=== PATIENT | male | born 1955 | race Caucasian/White ===

== ENCOUNTER → 2019-08-10 08:25 | Outpatient (BNVA) | payer BC, SELFPAY | PROVIDERS: Family Provider Family Medicine; PCP Family Medicine; Visit Provider Family Medicine | DX: I10 Essential (primary) hypertension (principal); E11.9 Type 2 diabetes mellitus without complications; R35.1 Nocturia; L03.211 Cellulitis of face | CPT/HCPCS: 80053; 80061; 82044; 83036; 84153; 85025 ==

== ENCOUNTER → 2019-11-29 10:35 | Outpatient (BNVA) | payer BC, SELFPAY | PROVIDERS: Family Provider Family Medicine; PCP Family Medicine; Visit Provider Family Medicine | DX: I10 Essential (primary) hypertension (principal); E11.9 Type 2 diabetes mellitus without complications; R35.1 Nocturia; Z12.5 Encounter for screening for malignant neoplasm of prostate | CPT/HCPCS: 80053; 80061; 82044; 83036; 85025; G0103 ==

== ENCOUNTER → 2020-07-20 11:22 | Outpatient (BNVA) | payer BC, SELFPAY | PROVIDERS: Family Provider Family Medicine; PCP Family Medicine; Visit Provider Emergency Medicine | DX: Z20.822 Contact with and (suspected) exposure to COVID-19 (principal) | CPT/HCPCS: 87635 ==

== ENCOUNTER 2020-08-20 09:00 | Emergency (ER) | payer BC, SELFPAY ==
[2020-08-20 09:05] VITALS: BP 160/123; PULSE 75; RESP 18; TEMP 36.7; O2SAT 99; BMI 27.6
--- NOTE | 2020-08-20 09:21 | W.ED.ALLEREA ---
HPI - Allergic Reaction General: Chief complaint: Allergic Reaction Stated complaint: Allergic Reaction/Swelling in the Face Time Seen by Provider: 08/20/20 09:03 History of Present Illness: HPI narrative: 65-year-old male who comes in complaint allergic reaction and swelling to his face. He was initially seen at the outpatient clinic and started on Keflex. Did not seem to be improving and was switched to clindamycin and topical mupirocin. He feels like it swelling more he describes a burning sensation across his face presents emergency room concerned he may be having allergic reaction does not have any rash anywhere else on his body is limited to just the face when the initial infection was. He is not had any difficulty breathing. MD complaint: facial swelling Onset (ago): minute(s) Associated symptoms: Reports facial swelling; Deny abdominal pain, difficulty breathing, dysphagia, dizziness, hoarseness, itching, lip swelling, nausea, rash, tongue swelling or vomiting Severity: moderate Treatment prior to arrival: none Previous Allergic Reaction History: none Review of Systems Const: Denies: fever(s), chills, body aches, change in appetite, fatigue or malaise ENMT: Denies: hoarseness Card: Denies: chest pain, edema, dyspnea on exertion or orthopnea Resp: Denies: dyspnea, productive cough or non-productive cough GI: Denies: abdominal pain, nausea, vomiting or dysphagia Neuro: Denies: dizziness All/Imm: Reports: facial swelling; Denies: tongue swelling PFS ED PFSH: Medical History Benign essential hypertension Exposure to COVID-19 virus Type 2 diabetes mellitus, without long-term current use of insulin Surgical History History of rotator cuff surgery History of surgical amputation of finger Family History Other Cancer Social History Smoking and tobacco status: former smoker Alcohol intake: current Alcohol intake frequency: 0-2 Drinks per Day Alcohol type: beer Physical Exam Const: COMMON NORMALS: no acute distress GENERAL APPEARANCE: cooperative and comfortable ORIENTATION/CONSCIOUSNESS: Yes awake, Yes oriented to person, Yes oriented to place and Yes oriented to time HENMT: COMMON NORMALS: normocephalic, atraumatic and hearing grossly normal bilaterally HEAD & SCALP: normocephalic and atraumatic Neck/C-Spine: COMMON NORMALS: no JVD Resp: COMMON NORMALS: normal respiratory effort, No retractions, No use of accessory muscles and clear to auscultation bilaterally AUSCULTATION: clear to auscultation bilaterally Cardio: COMMON NORMALS: no JVD, regular rate, regular rhythm and No murmurs present (Cardio) RATE: regular rate RHYTHM: regular rhythm Neuro: SENSORIUM/ORIENTATION: Yes oriented to person, Yes oriented to place and Yes oriented to time Skin: NARRATIVE SKIN EXAM: Malar rash of the face spreading across the glabella and inferiorly on the cheeks it is inflamed slightly warm to the touch hypertrophy of sebaceous glands involves sebaceous glands of the nose as well. Patient reports burning sensation with discomfort with palpation no identifiable abscess. Course Vital Signs: Vital signs: Vital Signs Temperature 98.1 F 08/20/20 09:05 Pulse Rate 73 08/20/20 09:28 Respiratory Rate 18 08/20/20 09:28 Blood Pressure 162/101 08/20/20 09:28 Pulse Oximetry 98 08/20/20 09:28 MDM - Allergic Reaction MDM Narrative: Medical decision making narrative: Stop clindamycin and mupirocin change to MetroGel and doxycycline. We will get him set up for referral to dermatology. Discharge Plan Discharge Patient Disposition: Home Clinical Impression: Rosacea Condition: Stable Prescriptions: New Metrogel 1 % gel 1 applic topical DAILY 14 Days Qty: 60 RF: 0 doxycycline hyclate 100 mg capsule 100 mg PO BID 14 Days Qty: 28 RF: 0 Discontinued silver sulfadiazine [Silvadene] 1 % cream 1 applic topical DAILY Qty: 50 RF: 0 mupirocin 2 % ointment 1 applic topical TID Qty: 22 RF: 0 clindamycin HCl 300 mg capsule 300 mg PO TID 7 Days Qty: 21 RF: 0 No Action hydrocodone-acetaminophen [Prosperity] 5-325 mg tablet 1 tab PO BID PRN (Reason: pain) 7 Days Qty: 14 RF: 0 losartan 25 mg tablet 25 mg PO DAILY Qty: 90 RF: 1 metformin 500 mg tablet 500 mg PO BID Qty: 180 RF: 1 tramadol 50 mg tablet 50 mg PO BID PRN (Reason: pain) Qty: 14 RF: 0 Discharge Orders: Discharge ED (Routine); Ordered 08/20/20 Ordered By: Edinson Santos Referrals: Jo Bolaños DO [Primary Care Provider] - Discharge Diet: Usual diet Discharge Activity: Increase activity as tolerated Patient Instructions: Opioid Safety Activity Restrictions/Additional Instructions: Avoid sun exposure. Case management will call with a referral to dermatology. Coding Level of Care Code ED Control Technician for Jabari Luna
[2020-08-20 09:28] VITALS: BP 162/101; PULSE 73; RESP 18; O2SAT 98
--- NOTE | 2020-08-20 15:13 | DCPLANNER ---
manager of investigations had message to schedule a follow up appointment with dermatology. manager of investigations called the [facility] [employer] office of Dr. Linton. manager of investigations spoke with Clementina, gave clinic patients information, a follow up appointment was scheduled for Thursday, January 21, 2021 at 12:[address] Linton. manager of investigations called patient, spoke with patients , gave her the appointment information.
== END 2020-08-20 09:29 | disposition home or self-care (01) ==
PROVIDERS: Emergency Provider Family Medicine; PCP Family Medicine
DX: L71.9 Rosacea, unspecified (principal); I10 Essential (primary) hypertension; E11.9 Type 2 diabetes mellitus without complications; Z87.891 Personal history of nicotine dependence; Z79.84 Long term (current) use of oral hypoglycemic drugs
CPT/HCPCS: 99282

== ENCOUNTER → 2021-01-21 12:11 | Outpatient (BNVA) | payer BC, MEDICARE, SELFPAY | PROVIDERS: PCP Family Medicine; Visit Provider Family Medicine | DX: I10 Essential (primary) hypertension (principal); E11.9 Type 2 diabetes mellitus without complications; Z12.5 Encounter for screening for malignant neoplasm of prostate | CPT/HCPCS: 82043 ==

== ENCOUNTER → 2021-01-22 07:10 | Outpatient (BNVA) | payer MEDICARE, SELFPAY | PROVIDERS: PCP Family Medicine; Visit Provider Family Medicine | DX: I10 Essential (primary) hypertension (principal); E11.9 Type 2 diabetes mellitus without complications; Z12.5 Encounter for screening for malignant neoplasm of prostate | CPT/HCPCS: 80053; 80061; 83036; 85025; G0103 ==

== ENCOUNTER → 2022-02-21 13:42 | Outpatient (BNVA) | payer MEDICARE, SELFPAY | PROVIDERS: PCP Family Medicine; Visit Provider Family Medicine | DX: I10 Essential (primary) hypertension (principal); E11.9 Type 2 diabetes mellitus without complications; Z12.5 Encounter for screening for malignant neoplasm of prostate | CPT/HCPCS: 80053; 80061; 82043; 83036; 85025; G0103 ==

== ENCOUNTER → 2022-03-04 08:19 | Outpatient (BNVA) | payer MEDICARE, SELFPAY | PROVIDERS: PCP Family Medicine; Visit Provider Surgery | DX: Z12.11 Encounter for screening for malignant neoplasm of colon (principal) | CPT/HCPCS: 99024; 99203 ==

== ENCOUNTER 2022-06-11 06:26 | Day surgery (SDC) | payer MEDICARE, SELFPAY ==
[2022-06-06 09:13] VITALS: BMI 24.5
[2022-06-11 06:44] VITALS: BP 142/87; PULSE 74; RESP 18; TEMP 36.7; O2SAT 98
[2022-06-11] MEDS: sodium chloride 0.9% 1,000 ML 30 ML IV (06:57)
[2022-06-11 07:00] LABS: Glucose Point of Care 130 mg/dL (70-110)
--- NOTE | 2022-06-11 07:30 | ANES.PREANE2 ---
Pre-Anesthetic Assessment Height/Weight: Height 1.8 m Weight 79.832 kg Temp Pulse Resp BP Pulse Ox O2 Del Method 98.1 F 74 18 142/87 98 06/11/22 06:44 06/11/22 06:44 06/11/22 06:44 06/11/22 06:44 06/11/22 06:44 06/11/22 06:44 Preop Diagnosis: Screening Operation Date: 06/11/22 08:00 Proposed Procedures p Colonoscopy 90392,Z12.11(Not Applicable) - Yair Boland DO Familial anesthetic complications: none Was Beta Yousif taken within 24 hours: N/A Was Clonidine taken within 24 hours: N/A Last intake: Intake Last Liquid Date 06/10/22 Last Liquid Time 23:30 Last Solid Date 06/10/22 Last Solid Time 02:00 Last Intake: 23:30 Social No alcohol (2-3 beer day) and No tobacco Exam alert, oriented x 3, clear to auscultation bilaterally and regular rate & rhythm Airway Submandibular: within normal limits Cervical ROM: within normal limits Mallampati: Class I Dentition: false (upper) Pulmonary None reported CV/HEM Hypertension None reported Hepatic None reported GI Gastroesophageal Reflux Disease (food related treats OTC) Metabolic Diabetes Mellitus [facility] [place] None reported Neuropsych None reported Anesthetic Plan ASA status: 2 Anesthesia: MAC Medications/Allergies Home Medications Medication Instructions Recorded Confirmed Last Taken Type atorvastatin 40 mg tablet 40 mg PO DAILY 30 days #30 tabs 02/21/22 06/06/22 06/09/22 Rx metformin 500 mg tablet 500 mg PO BID 30 days #60 tabs 02/25/22 06/06/22 06/09/22 Rx losartan 50 mg tablet 50 mg PO DAILY 06/06/22 06/06/22 06/09/22 History Allergies Allergy/AdvReac Type Severity Reaction Status Date / Time Penicillins AdvReac Mild unknown Verified 06/06/22 09:09 Current Medications Generic Name Dose Route Start Last Admin Trade Name Freq PRN Reason Stop Dose Admin Sodium Chloride 1,000 mls @ 30 mls/hr 06/11/22 06:45 06/11/22 06:57 Sodium Chloride 0.9% IV 06/12/22 06:44 30 mls/hr .Q24H OCTAVIANO Administration PFSH Anesthesia Medical History Benign essential hypertension Type 2 diabetes mellitus, without long-term current use of insulin Surgical History History of rotator cuff surgery History of surgical amputation of finger Family History Other Cancer Social History Smoking and tobacco status: former smoker Alcohol intake: current Alcohol intake frequency: 0-2 Drinks per Day Alcohol type: beer Data Anesthesia Cardiac Studies: No Data to Display
--- NOTE | 2022-06-11 07:49 | P.HP_ITS ---
Providers/Chief Complaint Primary Care Provider: oJ Bolaños DO Chief Complaint: Z12.11 History of Present Illness Eliceo Wyatt is a 67 year old male here for colonoscopy Medications/Allergies Home Medications Medication Instructions Recorded Confirmed Last Taken Type atorvastatin 40 mg tablet 40 mg PO DAILY 30 days #30 tabs 02/21/22 06/06/22 06/09/22 Rx metformin 500 mg tablet 500 mg PO BID 30 days #60 tabs 02/25/22 06/06/22 06/09/22 Rx losartan 50 mg tablet 50 mg PO DAILY 06/06/22 06/06/22 06/09/22 History Allergies Allergy/AdvReac Type Severity Reaction Status Date / Time Penicillins AdvReac Mild unknown Verified 06/06/22 09:09 PFSH Acute PFSH: Medical History Benign essential hypertension Type 2 diabetes mellitus, without long-term current use of insulin Surgical History History of rotator cuff surgery History of surgical amputation of finger Family History Other Cancer Social History Smoking and tobacco status: former smoker Alcohol intake: current Alcohol intake frequency: 0-2 Drinks per Day Alcohol type: beer Vitals/I&O/Wt Last Vital Signs Temp 98.1 F 06/11/22 06:44 Pulse 74 06/11/22 06:44 Resp 18 06/11/22 06:44 BP 142/87 06/11/22 06:44 Pulse Ox 98 06/11/22 06:44 O2 Del Method 06/11/22 06:44 A&P Assessment and plan (1) Colon cancer screening: Plan Colonoscopy Attestations Medical Necessity Statement*: Home Coding Level of Care Code Acute Quality Process Lead for Chg Fwd Diagnoses Colon cancer screening Z12.11
[2022-06-11 08:07] VITALS: BP 93/61; PULSE 70; RESP 16; TEMP 36.3; O2SAT 98
[2022-06-11 08:17] VITALS: BP 106/74; PULSE 71; RESP 16; O2SAT 98
--- NOTE | 2022-06-11 17:35 | ANE.PACU2 ---
Inpatient post-anesthesia follow up: Airway intact: Yes Vital signs: Temperature 97.4 F Pulse Rate 71 Respiratory Rate 16 Blood Pressure 106/74 Pulse Oximetry 98 Oxygen Delivery Me thod Room Air Oxygen Flow Rate Fraction of Inspir ed Oxygen Hydration adequate: Yes Nausea and vomiting: No Pain level: 1 Mental status: Baseline
== END 2022-06-11 08:26 | disposition home or self-care (01) ==
PROVIDERS: PCP Family Medicine; Visit Provider Surgery
PROC: 0DJD8ZZ Inspection of Lower Intestinal Tract, Via Natural or Artificial Opening Endoscopic (ICD-10-PCS; CPT 45378; principal; 2022-06-11 08:00)
DX: Z12.11 Encounter for screening for malignant neoplasm of colon (principal); I10 Essential (primary) hypertension; E11.9 Type 2 diabetes mellitus without complications; Z87.891 Personal history of nicotine dependence; K64.8 Other hemorrhoids; K21.9 Gastro-esophageal reflux disease without esophagitis
CPT/HCPCS: 36416; 82962; G0121; J2704; J7030

== ENCOUNTER → 2022-08-29 09:29 | Outpatient (BNVA) | payer MEDICARE, SELFPAY | PROVIDERS: PCP Family Medicine; Visit Provider Family Medicine | DX: E11.9 Type 2 diabetes mellitus without complications (principal) | CPT/HCPCS: 80053; 83036 ==

== ENCOUNTER → 2023-02-13 14:48 | Outpatient (BNVA) | payer MEDICARE, SELFPAY | PROVIDERS: PCP Family Medicine; Visit Provider Family Medicine | DX: I10 Essential (primary) hypertension (principal); E11.9 Type 2 diabetes mellitus without complications; Z12.5 Encounter for screening for malignant neoplasm of prostate | CPT/HCPCS: 80053; 80061; 82043; 83036; 85025; G0103 ==

== ENCOUNTER → 2023-05-19 08:43 | Outpatient (BNVA) | payer MEDICARE, SELFPAY | PROVIDERS: PCP Family Medicine; Visit Provider Family Medicine | DX: E11.9 Type 2 diabetes mellitus without complications (principal) | CPT/HCPCS: 80053; 83036 ==

== ENCOUNTER → 2023-08-17 08:53 | Outpatient (BNVA) | payer MEDICARE, SELFPAY | PROVIDERS: PCP Family Medicine; Visit Provider Family Medicine | DX: E11.9 Type 2 diabetes mellitus without complications (principal); I10 Essential (primary) hypertension | CPT/HCPCS: 80053; 83036 ==

== ENCOUNTER → 2023-11-19 09:19 | Outpatient (BNVA) | payer MEDICARE, SELFPAY | PROVIDERS: PCP Family Medicine; Visit Provider Family Medicine | DX: E11.9 Type 2 diabetes mellitus without complications (principal); I10 Essential (primary) hypertension | CPT/HCPCS: 80048; 83036 ==

== ENCOUNTER → 2024-06-29 09:49 | Outpatient (BNVA) | payer MEDICARE, SELFPAY | PROVIDERS: PCP Family Medicine; Visit Provider Family Medicine | DX: E11.9 Type 2 diabetes mellitus without complications (principal); E78.5 Hyperlipidemia, unspecified | CPT/HCPCS: 80053; 80061; 83036; 85025 ==